=== PATIENT | male | born 1940 | race Hispanic/Latino ===

== ENCOUNTER → 2018-09-06 | Outpatient (CLI) | payer OTHER | END | disposition home or self-care (01) | LOC: OIH 10:00 | PROVIDERS: ATTEND Family Medicine | DX: I10 Essential (primary) hypertension (principal) | CPT/HCPCS: 71046 ==

== ENCOUNTER → 2019-03-23 | Outpatient (CLI) | payer OTHER ==
--- NOTE | 2019-03-23 10:30 | NUR ---
MBSS COMPLETED. +PENETRATION WITH ALL TEXTURES. RECOMMEND NPO, LONG-TERM ALTERNATE MEANS OF NUTRITION/HYDRATION. RECOMMENDATIONS REVIEWED WITH Pt AND . Pt STATES THAT HE IS NOT SURE THAT HE WANTS TO GE ON A FEEDING TUBE. RISKS AND CONSEQUENCES OF ASPIRATION WERE VIEWED WITH Pt AND EXTENSIVELY EXPLAINED INCLUDING: ASPIRATION PNEUMONIA, LEADING TO DRUG RESISTANT PNEUMONIA, WITH POTENTIAL FATAL OUTCOMES. Pt AND STATED THAT THEY WOULD LIKE TO DISCUSS RESULTS AND RECOMMENDATIONS WITH HEALTHCARE PROVIDED AT THIS TIME. WATERSHED MANAGER SPOKE TO DR. GLEZ'S NURSE EDUARDO. ALTERNATIVE DIET RECOMMENDATIONS IF Pt' DECIDES TO CONTINUE P.O.: REGULAR TEXTURE, HONEY-THICK LIQUIDS; PILLS CRUSHED WITH APPLESAUCE. COMPENSATORY STRATEGIES: *SEATED AT 90 DEGREES *ALTERNATE BITES AND SIPS *NO MIXED TEXTURES (WRITTEN HANDOUT PROVIDED OF EXAMPLES) *SMALL BITES AND SIPS *CHANGE IN TEXTURE TO THE ABOVE STATED. SKILLED SPEECH THERAPY IS RECOMMENDED 2-3XWK TARGETING PHARYNGEAL SWALLOW. PLEASE CONSIDER NEUROMUSCULAR ELECTRICAL STIMULATION (NMES) FOR THERAPEUTIC INTERVENTION Addendum: 03/23/19 at [address] Amended: Links added.
== END | disposition home or self-care (01) ==
LOC: RAH 10:10
PROVIDERS: ATTEND Family Medicine
DX: R13.13 Dysphagia, pharyngeal phase (principal); K21.9 Gastro-esophageal reflux disease without esophagitis
CPT/HCPCS: 74230; 92611